=== PATIENT | female | born 1950 | race Caucasian/White ===

== ENCOUNTER 2016-09-24 06:15 | Observation (INO) | payer BC ==
[~2016-09-24] VITALS: Ht 167.6 cm; Wt 81.2 kg
[2016-09-24] VITALS (9 sets, daily range): BP systolic 87–122; BP diastolic 52–78
[~2016-09-24 06:15] MED LIST: CARDIA PO; CEFAZOLIN 1GM IVPB FOR OMNI 50 ML IV PRN; ESTRADIOL; HYDR-2666 PO; HYDR5SUS PO; IBUP-1060 PO; LOSA1TAB18 PO; SPIR50TA2 PO
[2016-09-24] MEDS ORDERED: FENTANYL PF 100 MCG/2 ML VIAL. IV PRN (07:00)
[2016-09-24] MEDS ORDERED: IV RINGERS,LACTATED 1000ML 1,000 ML IV SCH (07:00)
[2016-09-24] MEDS ORDERED: HYDROMORPHONE 2 MG/ML VIAL. IV PRN (07:00)
[2016-09-24] MEDS ORDERED: LIDOCAINE 1% 1 ML SYRINGE. ID PRN (07:00)
[2016-09-24] MEDS ORDERED: ONDANSETRON PF 4 MG/2 ML VIAL. IV PRN ×2 (07:00→11:15)
[2016-09-24] MEDS ORDERED: LIDOCAINE 2% 100 MG/5 ML DISP.SYRIN. ONE (07:15)
[2016-09-24] MEDS ORDERED: PROPOFOL 20 ML IV ONE (07:15)
[2016-09-24] MEDS ORDERED: SUCCINYLCHOLINE 200 MG/10 ML VIAL. ONE (07:15)
[2016-09-24] MEDS ORDERED: FENTANYL PF 100 MCG/2 ML VIAL. ONE (07:15)
[2016-09-24] MEDS ORDERED: ROCURONIUM 50 MG/5 ML VIAL. ONE (07:15)
[2016-09-24] MEDS ORDERED: ESTROGENS, CONJ VAGINAL CREAM 30GM TUBE. ONE (07:15)
[2016-09-24] MEDS ORDERED: LIDOCAINE 1%/EPI 1:100,000 20 ML VIAL. ONE (07:15)
[2016-09-24 07:52] LABS: BASO % 1 % (0-3); EOS % 3 % (0-3); HEMATOCRIT 35.4 % (36.0-47.0); HEMOGLOBIN 11.7 g/dL (12.0-15.5); LYMPH # 1.5 x10^3/uL (1.0-4.8); LYMPH % 28 % (24-48); MEAN CORPUSCULAR HEMOGLOBIN 32 pg (25-35); MEAN CORPUSCULAR HGB CONC 33 g/dL (31-37); MEAN CORPUSCULAR VOLUME 95 fL (79-100); MONO % 11 % (0-9); NEUT % 57 % (31-73); PLATELET COUNT 331 x10^3/uL (140-400); RED BLOOD COUNT 3.72 x10^6/uL (3.50-5.40); WHITE BLOOD COUNT 5.2 x10^3/uL (4.0-11.0)
[2016-09-24] MEDS ORDERED: ACETAMINOPHEN INTRAVENOUS 100 ML IV ONE (07:58)
[2016-09-24] MEDS ORDERED: DESFLURANE 61 TO 120 MINUTES IH ONE (08:22)
[2016-09-24] MEDS ORDERED: DEXAMETHASONE SOD PHOS 20 MG/5 ML VIAL. ONE (08:22)
[2016-09-24] MEDS ORDERED: NEOSTIGMINE METHYLSULFATE 5 MG/5 ML SYRINGE. ONE (08:23)
[2016-09-24] MEDS ORDERED: ONDANSETRON PF 4 MG/2 ML VIAL. ONE (08:23)
[2016-09-24] MEDS ORDERED: GLYCOPYRROLATE 1 MG/5 ML VIAL. ONE (08:23)
[2016-09-24] MEDS ORDERED: METHYLENE BLUE 1% 1 ML VIAL. ONE (08:35)
[2016-09-24] MEDS ORDERED: FUROSEMIDE 20 MG/2 ML VIAL ONE (08:35)
[2016-09-24] MEDS ORDERED: IOHEXOL 300 MG/ML 50 ML VIAL. ONE (09:23)
[2016-09-24] MEDS ORDERED: PHENYLEPHRINE in 0.9% NACL PF 1 MG/10 ML DISP.SYRIN. IV ONE (10:42)
--- NOTE | 2016-09-24 11:10 | PDOC ---
BRIEF OPERATIVE NOTE Pre-Op Diagnosis 1. Complete pelvic prolapse 2. HARPER Post-Op Diagnosis Same Procedure Performed 1. Sacrospinous Ligament Fixation 2. Bladder Sling 3. Anterior Colporrhaphy 4. Retrograde Cystogram by Urology, Dr. Gomez Surgeon Dr. Larson, Primary Dr. Gomez, Urology Anesthesiologist TASHA Anesthesia Type: General Blood Loss 100 ml Specimens Obtained vaginal mucosa Findings complete pelvic prolapse, HARPER Complications none Additional Remarks pt. BRIANA Elena Jr, MD Sep 24, 2016 11:10
[2016-09-24] MEDS ORDERED: PROCHLORPERAZINE 10 MG/2 ML VIAL. IV PRN (11:15)
[2016-09-24] MEDS ORDERED: ZOLPIDEM 5 MG TABLET. PO PRN (11:15)
[2016-09-24] MEDS ORDERED: KETOROLAC TROMETHAMINE 30 MG/ML SYRINGE. IV PRN (11:15)
[2016-09-24] MEDS ORDERED: SIMETHICONE 80 MG TAB.CHEW PO PRN (11:15)
[2016-09-24] MEDS ORDERED: DEXTROSE 50% 25 GM / 50ML DISP.SYRIN. IV PRN (11:15)
[2016-09-24] MEDS ORDERED: DIPHENHYDRAMINE 50 MG/ML VIAL IV PRN (11:15)
[2016-09-24] MEDS ORDERED: CALCIUM CARBONATE 500 MG TAB.CHEW PO PRN (11:15)
[2016-09-24] MEDS ORDERED: DIPHENHYDRAMINE HCL 25 MG CAPSULE PO PRN (11:15)
[2016-09-24] MEDS ORDERED: 0.9 % SODIUM CHLORIDE 10 ML DISP.SYRIN. IV PRN (11:15)
[2016-09-24] MEDS: FENTANYL PF 100 MCG/2 ML VIAL. IV PRN ×2 (11:44→11:58)
[2016-09-24] MEDS: MORPHINE SULFATE 2 MG/ML DISP.SYRIN. IV PRN ×2 (12:00→12:13)
[2016-09-24 13:26] LABS: BASO % 0 % (0-3); EOS % 0 % (0-3); HEMATOCRIT 34.2 % (36.0-47.0); HEMOGLOBIN 11.3 g/dL (12.0-15.5); LYMPH # 0.5 x10^3/uL (1.0-4.8); LYMPH % 6 % (24-48); MEAN CORPUSCULAR HEMOGLOBIN 32 pg (25-35); MEAN CORPUSCULAR HGB CONC 33 g/dL (31-37); MEAN CORPUSCULAR VOLUME 96 fL (79-100); MONO % 1 % (0-9); NEUT % 93 % (31-73); PLATELET COUNT 311 x10^3/uL (140-400); RED BLOOD COUNT 3.57 x10^6/uL (3.50-5.40); RED CELL DISTRIBUTION WIDTH 13.8 % (11.5-14.5); WHITE BLOOD COUNT 8.4 x10^3/uL (4.0-11.0)
--- NOTE | 2016-09-24 14:04 | OP ---
DATE OF SURGERY: PREOPERATIVE DIAGNOSES: 1. Complete tobacco products. 2. Stress urinary incontinence. POSTOPERATIVE DIAGNOSES: 1. Complete tobacco products. 2. Stress urinary incontinence. PROCEDURES PERFORMED: 1. Sacrospinous ligament fixation. 2. Bladder sling. 3. Anterior colporrhaphy. 4. Retrograde cystogram by Urology Dr. Gomez. SURGEON: Briana Cohen M.D. SECOND SURGEON: Dr. Gomez, Urology. ANESTHESIA: GETA. ESTIMATED BLOOD LOSS: 100 mL. COMPLICATIONS: None. FINDINGS: Complete pelvic prolapse, stress urinary incontinence. SUMMARY: A 66-year-old female who was diagnosed with complete pelvic organ prolapse and stress urinary incontinence requiring vaginal colpopexy in the form of sacrospinous ligament fixation, anterior and posterior colporrhaphy as well as a bladder sling for stress urinary incontinence. The patient was counseled on risks, benefits and expectations and voiced a clear understanding to proceed. DESCRIPTION OF PROCEDURE: The patient was taken to surgery suite and placed in dorsal lithotomy position. She was prepped with Betadine solution and draped in sterile fashion. After adequate anesthesia, weighted speculum and curved Madeleine placed vaginally, the posterior vaginal cuff was grasped with two Allis clamps. Lidocaine 1% with epinephrine was injected in the horizontal fashion between the two Allis clamps. Scalpel was utilized in a horizontal fashion making an incision through the vaginal mucosa. The vaginal mucosa was dissected away from the pubopelvic fascia anteriorly and posteriorly. We did encounter enterocele sac. Given the dissection portion of the anterior vaginal mucosa, there was concern about the bladder integrity. Therefore, methylene blue was given by Anesthesia, we waited 15-20 minutes and did not have any methylene blue through the ureteral junctions; therefore, Urology was consulted. The urologist, Dr. Gomez then proceeded retrograde cystogram as well as catheter feeding through the ureters up to the level of the kidney, which indicated that the ureters were intact and functioning well, in which we visualized yellow urine effluxing out through the cannulas, the cannulas were then removed and we proceeded with surgery. The enterocele sac was reduced with Monocryl suture in a 3-layer pursestring fashion. We then placed the ureterosacral ligament fixation sutures using the Capio device in which we utilized two sutures placed in the medial aspect of the right sacrospinous ligament and were tied loosely to the anterior and posterior vaginal wall. The remainder of the vaginal cuff was reapproximated using 2-0 Vicryl suture in a [id number] manner. An Allis clamp was placed 1 cm below the urethral orifice second Allis clamp was placed 3 cm below the first Allis clamp at the anterior vaginal wall. Lidocaine 1% with epinephrine was injected between the two Allis clamps in a linear fashion as well as in a periurethral space. Scalpel was utilized to make a vertical incision between the two Allis clamps. Metzenbaum scissors were utilized to dissect the anterior vaginal mucosa off from the pubovesical fascia as well as to dissect the periurethral space bilaterally. This was also dissected out bluntly all the way to the obturator foramen bilaterally. Incision was made at the level of clitoris toward abductus longus inserted to the pubic rami bilaterally in which the Obtryx trocar was then placed. The patient's right entry point, I guide with my index finger through the obturator foramen and out through the opening of the anterior vaginal wall. Same process took place with the left trocar and the cystoscope was then performed, in which there was no evidence of bladder injury. The ureterovesical junction was visualized and functioning normally. The cystoscope was then removed. The bladder mesh was then adjusted to elucidate using a size 7 Hegar dilator. The excess bladder sling mesh at the level of the skin was excised with suture scissors. The pubovesical fascia was then dissected further away from the vaginal mucosa bilaterally and then reapproximated with 2-0 Vicryl suture in an interrupted fashion. The excess anterior vaginal mucosa and some of the posterior vaginal mucosa was removed with Metzenbaum scissors. The vaginal wall mucosa was then reapproximated using 2-0 Vicryl suture in a [id number] manner. The posterior repair was not needed at this time. Dermabond was utilized to reapproximate the skin entry sites. The Devine catheter was placed which elicited clear yellow urine. A Premarin soaked vaginal packing was then placed. The patient tolerated the procedure well and was taken to recovery room in stable condition. Sponge and needle counts correct x 3. BRIANA COHEN MD DR: DEEPA/prasad JOB#: [id number] / [id number]
[2016-09-24 15:00] LABS: PLT ESTIMATE ADEQUATE (ADEQUATE)
[2016-09-24] MEDS: GABAPENTIN 300 MG CAPSULE. PO SCH ×2 (15:17→22:00)
[2016-09-24] MEDS: OXYCODONE/APAP 5/325 TABLET. PO PRN (17:48)
[2016-09-25] MEDS: OXYCODONE/APAP 5/325 TABLET. PO PRN ×5 (00:06→22:34)
[2016-09-25 03:02] VITALS: BP 103/58
[2016-09-25] MEDS: GABAPENTIN 300 MG CAPSULE. PO SCH ×2 (05:32→14:00)
[2016-09-25 06:07] LABS: BASO % 0 % (0-3); EOS % 0 % (0-3); HEMATOCRIT 29.4 % (36.0-47.0); HEMOGLOBIN 9.9 g/dL (12.0-15.5); LYMPH % 8 % (24-48); MEAN CORPUSCULAR HEMOGLOBIN 32 pg (25-35); MEAN CORPUSCULAR HGB CONC 34 g/dL (31-37); MEAN CORPUSCULAR VOLUME 95 fL (79-100); MONO % 6 % (0-9); NEUT % 87 % (31-73); PLATELET COUNT 289 x10^3/uL (140-400); RED BLOOD COUNT 3.09 x10^6/uL (3.50-5.40); RED CELL DISTRIBUTION WIDTH 13.6 % (11.5-14.5)
[2016-09-25] MEDS: IV RINGERS,LACTATED 1000ML 1,000 ML IV SCH ×4 (06:51→22:33)
[2016-09-25 07:05] VITALS: BP 89/57
[2016-09-25 10:40] VITALS: BP 93/55
[2016-09-25] MEDS ORDERED: IV RINGERS,LACTATED 500ML 500 ML IV ONE (11:45)
[2016-09-25 14:53] VITALS: BP 99/60
--- NOTE | 2016-09-25 17:21 | PDOC ---
SURGICAL PROGRESS NOTE Subjective Pt. feeling well. Pain controlled. Pt. had fluid bolus to help increase urine output. Will keep aguero until tomorrow when bladder challenge is completed. Vital Signs Vital Signs Date Time Temp Pulse Resp B/P Pulse Ox O2 Delivery O2 Flow Rate FiO2 09/25/16 14:53 98.0 76 16 99/60 98 Room Air 98.0 09/24/16 23:51 2.0 I&O Intake and Output 09/25/16 07:00 Intake Total 3448 ml Output Total 925 ml Balance 2523 ml Intake Oral 200 ml IV Total 3248 ml Output Urine Total 825 ml Estimated Blood Loss 100 ml PATIENT HAS A AGUERO: Yes General: Alert, Oriented X3, Cooperative HEENT: Atraumatic Lungs: Clear to auscultation Heart: Regular rate Abdomen: Normal bowel sounds, Soft, No tenderness, No masses Extremities: No edema Psych/Mental Status: Mental status NL Labs Laboratory Tests Test 09/24/16 07:00 09/24/16 13:10 09/25/16 05:30 White Blood Count 5.2x10^3/uL (4.0-11.0) 8.4x10^3/uL (4.0-11.0) 14.0x10^3/uL (4.0-11.0) Red Blood Count 3.72x10^6/uL (3.50-5.40) 3.57x10^6/uL (3.50-5.40) 3.09x10^6/uL (3.50-5.40) Hemoglobin 11.7g/dL (12.0-15.5) 11.3g/dL (12.0-15.5) 9.9g/dL (12.0-15.5) Hematocrit 35.4% (36.0-47.0) 34.2% (36.0-47.0) 29.4% (36.0-47.0) Mean Corpuscular Volume 95fL (79-100) 96fL (79-100) 95fL (79-100) Mean Corpuscular Hemoglobin 32pg (25-35) 32pg (25-35) 32pg (25-35) Mean Corpuscular Hemoglobin Concent 33g/dL (31-37) 33g/dL (31-37) 34g/dL (31-37) Red Cell Distribution Width 14.0% (11.5-14.5) 13.8% (11.5-14.5) 13.6% (11.5-14.5) Platelet Count 331x10^3/uL (140-400) 311x10^3/uL (140-400) 289x10^3/uL (140-400) Neutrophils (%) (Auto) 57% (31-73) 93% (31-73) 87% (31-73) Lymphocytes (%) (Auto) 28% (24-48) 6% (24-48) 8% (24-48) Monocytes (%) (Auto) 11% (0-9) 1% (0-9) 6% (0-9) Eosinophils (%) (Auto) 3% (0-3) 0% (0-3) 0% (0-3) Basophils (%) (Auto) 1% (0-3) 0% (0-3) 0% (0-3) Neutrophils # (Auto) 3.0x10^3uL (1.8-7.7) 7.8x10^3uL (1.8-7.7) 12.2x10^3uL (1.8-7.7) Lymphocytes # (Auto) 1.5x10^3/uL (1.0-4.8) 0.5x10^3/uL (1.0-4.8) 1.0x10^3/uL (1.0-4.8) Monocytes # (Auto) 0.6x10^3/uL (0.0-1.1) 0.1x10^3/uL (0.0-1.1) 0.8x10^3/uL (0.0-1.1) Eosinophils # (Auto) 0.2x10^3/uL (0.0-0.7) 0.0x10^3/uL (0.0-0.7) 0.0x10^3/uL (0.0-0.7) Basophils # (Auto) 0.0x10^3/uL (0.0-0.2) 0.0x10^3/uL (0.0-0.2) 0.0x10^3/uL (0.0-0.2) Segmented Neutrophils % 91% (35-66) Band Neutrophils % 4% (0-9) Lymphocytes % 3% (24-48) Atypical Lymphocytes % (Manual) 2% (0-0) Platelet Estimate Adequate (ADEQUATE) Laboratory Tests Test 09/25/16 05:30 White Blood Count 14.0x10^3/uL (4.0-11.0) Red Blood Count 3.09x10^6/uL (3.50-5.40) Hemoglobin 9.9g/dL (12.0-15.5) Hematocrit 29.4% (36.0-47.0) Mean Corpuscular Volume 95fL (79-100) Mean Corpuscular Hemoglobin 32pg (25-35) Mean Corpuscular Hemoglobin Concent 34g/dL (31-37) Red Cell Distribution Width 13.6% (11.5-14.5) Platelet Count 289x10^3/uL (140-400) Neutrophils (%) (Auto) 87% (31-73) Lymphocytes (%) (Auto) 8% (24-48) Monocytes (%) (Auto) 6% (0-9) Eosinophils (%) (Auto) 0% (0-3) Basophils (%) (Auto) 0% (0-3) Neutrophils # (Auto) 12.2x10^3uL (1.8-7.7) Lymphocytes # (Auto) 1.0x10^3/uL (1.0-4.8) Monocytes # (Auto) 0.8x10^3/uL (0.0-1.1) Eosinophils # (Auto) 0.0x10^3/uL (0.0-0.7) Basophils # (Auto) 0.0x10^3/uL (0.0-0.2) Problem List Problems Medical Problems: (1) HARPER (stress urinary incontinence, female) Status: Acute (2) Vaginal vault prolapse, posthysterectomy Status: Acute Assessment/Plan A: POD#1 s/p SSF, Anterior Repair and BLadder sling Dehydration: urine output improving P: Continue post op care. Continue aguero cath. Anticipate d/c home tomorrow. Problems: BRIANA COHEN Jr, MD Sep 25, 2016 17:21
[2016-09-25 17:30] VITALS: BP 98/56
[2016-09-25 22:35] VITALS: BP 90/55
[2016-09-26] MEDS: OXYCODONE/APAP 5/325 TABLET. PO PRN ×3 (04:21→15:56)
[2016-09-26] MEDS: IV RINGERS,LACTATED 1000ML 1,000 ML IV SCH ×2 (04:22→11:27)
[2016-09-26 05:20] VITALS: BP 100/65
[2016-09-26 11:05] VITALS: BP 115/71
--- NOTE | 2016-09-26 14:42 | PDOC ---
SURGICAL PROGRESS NOTE Subjective Pt. feeling better. Pain controlled. SHe passed bladder challenge. Vital Signs Vital Signs Date Time Temp Pulse Resp B/P Pulse Ox O2 Delivery O2 Flow Rate FiO2 09/26/16 11:24 20 96 Nasal Cannula 2.0 09/26/16 11:05 98.4 80 115/71 98.4 I&O Intake and Output 09/26/16 07:00 Intake Total 3975 ml Output Total 1930 ml Balance 2045 ml Intake Oral 2150 ml IV Total 1000 ml Other 825 ml Output Urine Total 1930 ml PATIENT HAS A DAMON: No General: Alert, Oriented X3, Cooperative HEENT: Atraumatic Lungs: Clear to auscultation Heart: Regular rate Abdomen: Normal bowel sounds, Soft, No tenderness Extremities: No edema Neuro: Normal gait Psych/Mental Status: Mental status NL Labs Laboratory Tests Test 09/25/16 05:30 White Blood Count 14.0x10^3/uL (4.0-11.0) Red Blood Count 3.09x10^6/uL (3.50-5.40) Hemoglobin 9.9g/dL (12.0-15.5) Hematocrit 29.4% (36.0-47.0) Mean Corpuscular Volume 95fL (79-100) Mean Corpuscular Hemoglobin 32pg (25-35) Mean Corpuscular Hemoglobin Concent 34g/dL (31-37) Red Cell Distribution Width 13.6% (11.5-14.5) Platelet Count 289x10^3/uL (140-400) Neutrophils (%) (Auto) 87% (31-73) Lymphocytes (%) (Auto) 8% (24-48) Monocytes (%) (Auto) 6% (0-9) Eosinophils (%) (Auto) 0% (0-3) Basophils (%) (Auto) 0% (0-3) Neutrophils # (Auto) 12.2x10^3uL (1.8-7.7) Lymphocytes # (Auto) 1.0x10^3/uL (1.0-4.8) Monocytes # (Auto) 0.8x10^3/uL (0.0-1.1) Eosinophils # (Auto) 0.0x10^3/uL (0.0-0.7) Basophils # (Auto) 0.0x10^3/uL (0.0-0.2) Problem List Problems Medical Problems: (1) HARPER (stress urinary incontinence, female) Status: Acute (2) Vaginal vault prolapse, posthysterectomy Status: Acute Assessment/Plan A: POD#2 s/p SSF, Anterior Repair and Bladder Sling P: D/c home. Problems: BRIANA COHEN Jr, MD Sep 26, 2016 14:42
--- NOTE | 2016-09-26 14:43 | DISCH ---
DISCHARGE INSTRUCTIONS Condition on Discharge Condition on Discharge: Stable Activity After Discharge Activity Instructions for Disc: Activity as tolerated Lifting Instructions after Dis: No heavy lifting Driving Instructions after Dis: Do not drive today Diet after Discharge Diet after Discharge: Regular Contacting the DRJose after DC Call your doctor for: Concerns you may have Follow-Up Follow up with: Dr. Larson in 2 weeks. BRIANA LARSON Jr, MD Sep 26, 2016 14:43
[2016-09-26] MEDS ORDERED: OXYC-323 PO (14:44)
[2016-09-26] MEDS ORDERED: IBUP-1060 PO (14:44)
[2016-09-26] MEDS ORDERED: DOCU-27 PO (14:44)
[2016-09-26 16:00] VITALS: BP 122/79
== END 2016-09-26 18:26 | disposition home or self-care (01) ==
LOC: SURG 06:15 → 3 NORTH 11:34
PROVIDERS: ADMIT Obstetrics & Gynecology; ATTEND Obstetrics & Gynecology
DX: N81.89 Other female genital prolapse (principal); N39.3 Stress incontinence (female) (male); F17.200 Nicotine dependence, unspecified, uncomplicated
CPT/HCPCS: 36415; 52005; 57282; 57288; 74420; 85007; 85027; 86850; 86900; 86901; 96374; A4215; C1769; G0378; G0379; J0131; J0330; J0690; J0780; J1100; J1885; J2270; J2370; J2405; J2704; J2710; J3010; J3490; J7030; J7120; Q9967; Q9968; C1771

== ENCOUNTER 2016-09-27 03:15 | Inpatient (IN) | payer BC ==
[~2016-09-27] VITALS: Ht 167.6 cm; Wt 91.2 kg
[~2016-09-27 03:15] MED LIST changes: -CEFAZOLIN 1GM IVPB FOR OMNI 50 ML IV PRN; +DOCU-27 PO; +OXYC-323 PO
[2016-09-27 03:40] LABS: BASO % 1 % (0-3); EOS % 1 % (0-3); HEMATOCRIT 32.3 % (36.0-47.0); HEMOGLOBIN 10.7 g/dL (12.0-15.5); LYMPH # 1.2 x10^3/uL (1.0-4.8); LYMPH % 12 % (24-48); MEAN CORPUSCULAR HEMOGLOBIN 32 pg (25-35); MEAN CORPUSCULAR HGB CONC 33 g/dL (31-37); MEAN CORPUSCULAR VOLUME 96 fL (79-100); MONO % 8 % (0-9); NEUT % 79 % (31-73); PLATELET COUNT 308 x10^3/uL (140-400); RED BLOOD COUNT 3.36 x10^6/uL (3.50-5.40); RED CELL DISTRIBUTION WIDTH 13.5 % (11.5-14.5); WHITE BLOOD COUNT 10.1 x10^3/uL (4.0-11.0)
[2016-09-27] MEDS ORDERED: IV NORMAL SALINE 1000ML BAG 1,000 ML IV ONE (03:45)
[2016-09-27] MEDS ORDERED: FAMOTIDINE 20 MG/2 ML VIAL IVP ONE (03:45)
[2016-09-27] MEDS ORDERED: ASPIRIN 81 MG TAB.CHEW PO ONE (03:45)
[2016-09-27] MEDS ORDERED: ONDANSETRON PF 4 MG/2 ML VIAL. IV ONE (03:45)
[2016-09-27 03:51] LABS: CALCIUM 9.2 mg/dL (8.5-10.1); CREATININE 0.8 mg/dL (0.6-1.0); GFR 72.2; POTASSIUM 3.5 mmol/L (3.5-5.1)
[2016-09-27 03:59] LABS: ALBUMIN 3.5 g/dL (3.4-5.0); DIRECT BILIRUBIN 0.1 mg/dL (0.0-0.2); MAGNESIUM 1.5 mg/dL (1.8-2.4); TOTAL BILIRUBIN 0.4 mg/dL (0.2-1.0); TOTAL PROTEIN 6.9 g/dL (6.4-8.2)
[2016-09-27] MEDS ORDERED: CONTRAST GIVEN MC PRN (04:00)
[2016-09-27] MEDS ORDERED: IOHEXOL 300 MG/ML 75 ML VIAL IV ONE (04:00)
[2016-09-27 04:04] LABS: CKMB INDEX 0.9 % (0-4); CKMB MASS 1.1 ng/mL (0.0-3.6)
--- NOTE | 2016-09-27 04:43 | PHYS DOC ---
Past Medical History Past Medical History: Hypertension Past Surgical History: Hysterectomy, Knee Replacement Additional Past Surgical Histo: BILAT BREAST BIOPSY, PROLAPSED BLADDER SX Alcohol Use: None Drug Use: None Adult General Chief Complaint Chief Complaint: CHEST PAIN HPI HPI 66-year-old female with a recent history of bladder surgery presents with left- sided chest pain shortness of breath and dyspnea on exertion. She also states she's had some nausea vomiting and diarrhea. She states this primarily started 4 -5 hours prior to arrival. She denies any high fever chills sweats or body aches. She has not had any hemoptysis. She does state that it occasionally hurts when she takes a deep breath. [] Review of Systems Review of Systems Constitutional: Denies fever or chills [] Eyes: Denies change in visual acuity, redness, or eye pain [] HENT: Denies nasal congestion or sore throat [] Respiratory: Per history of present illness [] Cardiovascular: No additional information not addressed in HPI [] GI: Denies abdominal pain, nausea, vomiting, bloody stools or diarrhea [] : Denies dysuria or hematuria [] Musculoskeletal: Denies back pain or joint pain [] Integument: Denies rash or skin lesions [] Neurologic: Denies headache, focal weakness or sensory changes [] Endocrine: Denies polyuria or polydipsia [] Current Medications Current Medications Current Medications Medications (Trade) Dose Ordered Sig/Laxmi Start Time Stop Time Status Last Admin Dose Admin Acetaminophen (Tylenol) 650 mg PRN Q4HRS PRN 09/27/16 05:45 09/28/16 05:44 Aspirin 324 mg 324 mg 1X ONCE 09/27/16 03:45 09/27/16 03:46 DC 09/27/16 03:57 324 MG Famotidine (Pepcid) 20 mg 1X ONCE 09/27/16 03:45 09/27/16 03:46 DC 09/27/16 03:57 20 MG Furosemide (Lasix) 40 mg 1X ONCE 09/27/16 05:15 09/27/16 05:16 DC 09/27/16 05:46 40 MG Info (Do NOT chart on this entry -- for MONITORING) 1 each PRN DAILY PRN 09/27/16 04:00 09/29/16 03:59 Iohexol (Omnipaque 300 Mg/ml) 75 ml 1X ONCE 09/27/16 04:00 09/27/16 04:01 DC Ondansetron HCl (Zofran) 4 mg PRN Q8HRS PRN 09/27/16 05:45 09/28/16 05:44 Sodium Chloride (Iv Sodium Chloride 0.9% 1000ml Bag) 1,000 ml @ 1,000 mls/hr 1X ONCE 09/27/16 03:45 09/27/16 04:44 DC 09/27/16 03:56 1,000 MLS/HR Allergies Allergies Allergies Coded Allergies Type Severity Reaction Last Updated Verified No Known Drug Allergies 09/22/16 No Physical Exam Physical Exam Constitutional: Well developed, well nourished, no acute distress, non-toxic appearance. [] HENT: Normocephalic, atraumatic, bilateral external ears normal, oropharynx moist, no oral exudates, nose normal. [] Eyes: PERRLA, EOMI, conjunctiva normal, no discharge. [] Neck: Normal range of motion, no tenderness, supple, no stridor. [] Cardiovascular:Heart rate regular rhythm, no murmur [] Lungs & Thorax: Bilateral breath sounds clear to auscultation [] Abdomen: Bowel sounds normal, soft, no tenderness, no masses, no pulsatile masses. [] Skin: Warm, dry, no erythema, no rash. [] Back: No tenderness, no CVA tenderness. [] Extremities: No tenderness, no cyanosis, no clubbing, ROM intact, no edema. [] Neurologic: Alert and oriented X 3, normal motor function, normal sensory function, no focal deficits noted. [] Psychologic: Affect normal, judgement normal, mood normal. [] Current Patient Data Vital Signs Vital Signs Date Time Temp Pulse Resp B/P Pulse Ox O2 Delivery O2 Flow Rate FiO2 09/27/16 03:21 97.8 82 22 159/81 93 Room Air 97.8 Lab Values Laboratory Tests Test 09/27/16 03:30 White Blood Count 10.1x10^3/uL (4.0-11.0) Red Blood Count 3.36x10^6/uL (3.50-5.40) L Hemoglobin 10.7g/dL (12.0-15.5) L Hematocrit 32.3% (36.0-47.0) L Mean Corpuscular Volume 96fL (79-100) Mean Corpuscular Hemoglobin 32pg (25-35) Mean Corpuscular Hemoglobin Concent 33g/dL (31-37) Red Cell Distribution Width 13.5% (11.5-14.5) Platelet Count 308x10^3/uL (140-400) Neutrophils (%) (Auto) 79% (31-73) H Lymphocytes (%) (Auto) 12% (24-48) L Monocytes (%) (Auto) 8% (0-9) Eosinophils (%) (Auto) 1% (0-3) Basophils (%) (Auto) 1% (0-3) Neutrophils # (Auto) 8.0x10^3uL (1.8-7.7) H Lymphocytes # (Auto) 1.2x10^3/uL (1.0-4.8) Monocytes # (Auto) 0.8x10^3/uL (0.0-1.1) Eosinophils # (Auto) 0.1x10^3/uL (0.0-0.7) Basophils # (Auto) 0.0x10^3/uL (0.0-0.2) Prothrombin Time 13.0SEC (11.7-14.0) Prothrombin Time INR 1.0 (0.8-1.1) Sodium Level 141mmol/L (136-145) Potassium Level 3.5mmol/L (3.5-5.1) Chloride Level 104mmol/L (98-107) Carbon Dioxide Level 30mmol/L (21-32) Anion Gap 7 (6-14) Blood Urea Nitrogen 12mg/dL (7-20) Creatinine 0.8mg/dL (0.6-1.0) Estimated GFR (Cockcroft-Gault) 72.2 Glucose Level 108mg/dL (70-99) H Calcium Level 9.2mg/dL (8.5-10.1) Magnesium Level 1.5mg/dL (1.8-2.4) L Total Bilirubin 0.4mg/dL (0.2-1.0) Direct Bilirubin 0.1mg/dL (0.0-0.2) Aspartate Amino Transferase (AST) 38U/L (15-37) H Alanine Aminotransferase (ALT) 32U/L (14-59) Alkaline Phosphatase 75U/L (46-116) Creatine Kinase 125U/L (26-192) Creatine Kinase MB (Mass) 1.1ng/mL (0.0-3.6) Creatine Kinase MB Relative Index 0.9% (0-4) Troponin I Quantitative < 0.017ng/mL (0.000-0.055) VI-Ypa-J-Type Natriuretic Peptide 892pg/mL (0-124) H Total Protein 6.9g/dL (6.4-8.2) Albumin 3.5g/dL (3.4-5.0) Laboratory Tests 09/27/16 03:30 Laboratory Tests 09/27/16 03:30 EKG EKG [EKG: Normal sinus rhythm rate of [address]-T changes] Radiology/Procedures Radiology/Procedures [Chest x-ray: Vascular congestion consistent with congestive heart failure] Course & Med Decision Making Course & Med Decision Making Pertinent Labs and Imaging studies reviewed. (See chart for details) [ED course: Evaluation reveals 66-year-old female who is uncomfortable secondary to some fullness in her chest. She climbed she had chest pain. She had some pleuritic component to her pain. She was given IV Lasix during her stay in the department and she did begin to diurese and after doing so felt much better. I spoke with Dr. Gilberto irizarry who agreed to accept the patient for admission.] Dragon Disclaimer Dragon Disclaimer This electronic medical record was generated, in whole or in part, using a voice recognition dictation system. Departure Departure Impression: Primary Impression: Shortness of breath Additional Impression: CHF (congestive heart failure) Disposition: 09 ADMITTED INPATIENT Admitting Physician: Cristian Balbuena Referrals: ANAHI WOODY MD (PCP) Problem Qualifiers Additional Impression: CHF (congestive heart failure) Congestive heart failure type: unspecified congestive heart failure type Congestive heart failure chronicity: unspecified congestive heart failure chronicity Qualified Code: I50.9 - Heart failure, unspecified DEVORA VALDEZ DO Sep 27, 2016 04:43
[2016-09-27] MEDS ORDERED: FUROSEMIDE 40 MG/4 ML VIAL IVP ONE (05:15)
--- NOTE | 2016-09-27 05:27 | RAD ---
INDICATION: Chest pain. COMPARISON: None TECHNIQUE: Axial CT images obtained through the chest. Intravenous contrast was utilized. 3D images processed per protocol. One or more of the following individualized dose reduction techniques were utilized for this examination: 1. Automated exposure control; 2. Adjustment of the mA and/or kV according to patient size; 3. Use of iterative reconstruction technique. FINDINGS: Mild interstitial opacities. More focal opacities are seen at the lung bases. Small right greater than left pleural effusion. No pneumothorax. No thoracic aortic aneurysm or dissection. Suspect small hiatal hernia. Degenerative changes of spine. No central pulmonary embolus IMPRESSION: No central pulmonary embolus. Interstitial opacities bilaterally with small pleural effusions. Could be from edema. Patchy opacities at lung bases. Could be from atelectasis or infiltrate. Follow-up could be obtained to ensure resolution. Electronically signed by: Andrew De La Rosa (Sep 27, 2016 05:25:30)
[2016-09-27] MEDS ORDERED: ONDANSETRON PF 4 MG/2 ML VIAL. IV PRN (05:45)
[2016-09-27] MEDS ORDERED: ACETAMINOPHEN 325 MG TABLET. PO PRN (05:45)
--- NOTE | 2016-09-27 06:42 | ACF ---
Admission Forms Criteria HEART FAILURE: COMMON COMPLICATIONS Clinical Indications for Inpatient Care (Place 'X' for any and all applicable criteria): Ongoing inpatient care may be indicated for heart failure with ANY ONE of the following (1)(2)(3)(4)(5): [ ]I. Ongoing need for care for primary condition requiring frequent therapy adjustments because of changes in cardiac function (eg, drug dosage changes for drugs that are renally metabolized) [ ]II. New-onset heart failure [ ]III. Heart failure with decreased urine output not responsive to attempts to optimize volume status [ ]IV. Acute cardiac ischemia causing or associated with failure [X]V. Complications of heart failure, including ANY ONE of the following: [ ]a) Pericardial effusion [ ]b) Symptomatic pleural effusion [ ]c) O2 saturation <90% or PO2 < 60 mm Hg (8.0 kPa) on room air or require baseline supplemental O2 [ ]d) Tachypnea [X]e) Dyspnea [ ]f) Syncope [ ]g) Change in mental status [ ]h) Acute renal insufficiency that is severe (reduction of more than 50% in estimated glomerular filtration rate from baseline) or progressive reduction of more than 25% in estimated glomerular filtration rate from baseline, with creatinine continuing to rise) [ ]i) Hemodynamic instability [ ]j) Anasarca [ ]k) Clinically significant metabolic abnormalities due to heart failure (eg, new-onset metabolic acidosis) Extended stay beyond goal length of stay for primary condition may be needed until ALL of the following are present(1)(3): [ ]a) Stable and effective diuretic regimen established (or patient on stable dialysis regimen if in chronic renal failure) [ ]b) Breathing comfortably at rest [ ]c) Saturation of arterial oxygen greater than 90% or at acceptable baseline [ ]d) Pulmonary edema absent or improved [ ]e) Hemodynamic stability [ ]f) Volume status acceptable on oral medication [ ]g) Peripheral or sacral edema absent or improved [ ]h) Renal function stable and manageable at a lower level of care [ ]i) Complications (eg, pleural effusion) resolved or manageable at a lower level of care [ ]j) Patient or caregiver has received written discharge instructions or educational material addressing activity level, diet, discharge medications, follow-up appointment, weight monitoring, and what to do if symptoms worsen The original [email or web address] content created by [email or web address] has been revised. The portions of the content which have been revised are identified through the use of italic text or in bold, and [facility] has neither reviewed nor approved the modified material.All other unmodified content is copyright [facility]. Please see references footnoted in the original [facility] edition 2016 Admission Criteria Met?: Yes STEVEN LAYTON Sep 27, 2016 06:42
[2016-09-27 07:00] VITALS: BP 151/84
--- NOTE | 2016-09-27 07:57 | RAD ---
EXAM: Chest, single view. HISTORY: Chest pain. COMPARISON: 11/17/2012. FINDINGS: A frontal view of the chest is obtained. There is bilateral lower lobe predominant diffuse interstitial infiltrate. There is no pneumothorax. There are suspected trace to small pleural effusions. The heart is normal in size. IMPRESSION: Lower lobe predominant diffuse interstitial infiltrate with possible trace to small pleural effusions.
[2016-09-27] MEDS ORDERED: IBUPROFEN 800 MG TABLET. PO PRN ×2 (08:00→14:15)
[2016-09-27] MEDS ORDERED: HYDROCODONE/CHLORPHEN POLIS 5 ML SUS.ER.12H. PO PRN (08:15)
[2016-09-27] MEDS ORDERED: NON FORMULARY ITEM (Losartan/Hydrochlorothiazide (Losartan-Hctz 100-12.5 Mg Tab) 1 EACH) PO SCH (09:00)
[2016-09-27] MEDS: SPIRONOLACTONE 25 MG TABLET PO SCH (09:03)
[2016-09-27] MEDS: DOCUSATE SODIUM 100 MG CAPSULE PO SCH ×2 (09:03→20:28)
[2016-09-27] MEDS: HYDROCHLOROTHIAZIDE 12.5 MG CAPSULE. PO SCH (09:03)
[2016-09-27] MEDS: LOSARTAN POTASSIUM 50 MG TABLET. PO SCH (09:04)
[2016-09-27] MEDS: DILTIAZEM HCL 180 MG CAP.ER.24H PO SCH (09:08)
[2016-09-27] MEDS ORDERED: MAGNESIUM SULFATE 2GM 50 ML IV ONE (09:30)
--- NOTE | 2016-09-27 09:46 | PDOC2 ---
CONSULT Date of Consult Date of Consult DATE: 09/27/16 TIME: 09:46 Reason for Consult Reason for Consult: Congestive heart failure Referring Physician Referring Physician: Dr. Balbuena Identification/Chief Complaint Chief Complaint Shortness of breath Source Source: Chart review, Patient History of Present Illness Reason for Visit: 66-year-old female who recently underwent surgical repair for prolapsed bladder 09/25/15 presented with shortness of breath associated with retrosternal chest pressure, nausea, vomiting and diarrhea starting 4-5 hours prior to presentation. She denied any fever, chills, palpitations or syncope. Past Medical History Past Medical History Hypertension Past Surgical History Past Surgical History Hysterectomy Knee replacement surgery Prolapsed bladder surgery Breast biopsy Family History Family History Negative for premature coronary artery disease Social History Social History Patient denied any smoking alcohol or drug use Current Problem List Problem List Problems Medical Problems: (1) CHF (congestive heart failure) Status: Acute (2) Shortness of breath Status: Acute Current Medications Current Medications Current Medications Aspirin 324 mg 324 mg 1X ONCE PO Last administered on 09/27/16 03:57; Start 09/27/16 at 03:45; Stop 09/27/16 at 03:46; Status DC Sodium Chloride (Iv Sodium Chloride 0.9% 1000ml Bag) 1,000 ml @ 1,000 mls/hr 1X ONCE IV Last administered on 09/27/16 03:56; Start 09/27/16 at 03:45; Stop 09/27/16 at 04:44; Status DC Ondansetron HCl (Zofran) 4 mg 1X ONCE IV Last administered on 09/27/16 03:56 ; Start 09/27/16 at 03:45; Stop 09/27/16 at 03:46; Status DC Famotidine (Pepcid) 20 mg 1X ONCE IVP Last administered on 09/27/16 03:57; Start 09/27/16 at 03:45; Stop 09/27/16 at 03:46; Status DC Iohexol (Omnipaque 300 Mg/ml) 75 ml 1X ONCE IV ; Start 09/27/16 at 04:00; Stop 09/27/16 at 04:01; Status DC Info (Do NOT chart on this entry -- for MONITORING) 1 each PRN DAILY PRN MC SEE COMMENTS; Start 09/27/16 at 04:00; Stop 09/29/16 at 03:59 Furosemide (Lasix) 40 mg 1X ONCE IVP Last administered on 09/27/16 05:46; Start 09/27/16 at 05:15; Stop 09/27/16 at 05:16; Status DC Ondansetron HCl (Zofran) 4 mg PRN Q8HRS PRN IV NAUSEA/VOMITING; Start 09/27/16 at 05:45; Stop 09/28/16 at 05:44 Acetaminophen (Tylenol) 650 mg PRN Q4HRS PRN PO FEVER; Start 09/27/16 at 05:45 ; Stop 09/28/16 at 05:44 Docusate Sodium (Colace) 100 mg BID PO Last administered on 09/27/16 09:03; Start 09/27/16 at 09:00 Oxycodone/ Acetaminophen (Percocet 5/325) 1 tab PRN Q4HRS PRN PO SEVERE PAIN; Start 09/27/16 at 08:00 Chlorphenir/ Hydrocodone Polistirex (Tussionex) 5 ml PRN Q12HR PRN PO COUGH; Start 09/27/16 at 08:15 Non-Formulary Medication 1 each DAILY PO ; Start 09/27/16 at 09:00; Status UNV Spironolactone (Aldactone) 50 mg DAILY PO Last administered on 09/27/16 09:03 ; Start 09/27/16 at 09:00 Diltiazem HCl (Cardizem 24hr Cd) 180 mg DAILY PO Last administered on 09:08; Start 09/27/16 at 09:00 Ibuprofen (Motrin) 800 mg PRN Q6HRS PRN PO INFLAMMATION; Start 09/27/16 at 08: 00 Losartan Potassium (Cozaar) 100 mg DAILY PO Last administered on 09/27/16 09: 04; Start 09/27/16 at 09:00 Hydrochlorothiazide 12.5 mg 12.5 mg DAILY PO Last administered on 09/27/16 09: 03; Start 09/27/16 at 09:00 Magnesium Sulfate/ Dextrose (Magnesium Sulfate PREMIX 2GM) 50 ml @ 25 mls/hr 1X ONCE IV ; Start 09/27/16 at 09:30; Stop 09/27/16 at 11:29 Active Scripts Active Percocet 5-325 Mg Tablet (Oxycodone/Acetaminophen) 1 Each Tablet 1-2 Tab PO Q4- 6HRS Colace (Docusate Sodium) 100 Mg Capsule 1 Cap PO BID Ibuprofen 800 Mg Tablet 800 Mg PO PRN Q6HRS PRN Reported Losartan-Hctz 100-12.5 Mg Tab (Losartan/Hydrochlorothiazide) 1 Each Tablet 1 Each PO DAILY [estradiol injection] Q4WK Spironolactone 50 Mg Tablet 1 Tab PO DAILY [cardia] 180 Mg PO DAILY Ibuprofen 800 Mg Tablet 800 Mg PO PRN Q6HRS PRN Hydrocodone-Apap 5-325 (Hydrocodone Bit/Acetaminophen) 1 Each Tablet 1 Tab PO PRN Q6HRS PRN Hydrocodone-Chlorpheniram Susp (Hydrocodone/Chlorphen Polis) 5 Ml Miriam.er.12h 5 Ml PO PRN Q12HR PRN Allergies Allergies: Coded Allergies: No Known Drug Allergies (Unverified , 09/22/16) ROS PSYCHOLOGICAL ROS: No: Hallucinations Eyes: No Loss of vision HEENT: No: Epistaxis Respiratory: YES: Shortness of breath, No: Cough, Hemoptysis Cardiovascular: yes Chest Pain Gastrointestinal: Yes Diarrhea, Yes Nausea, Yes Vomiting Genitourinary: No Hematuria Neurological: No Seizures Skin: No Rash Physical Exam General: Alert HEENT: Atraumatic, PERRLA Lungs: Clear to auscultation Heart: Regular rate Abdomen: Soft Extremities: No edema Psych/Mental Status: Mood NL Vitals VITALS Vital Signs Date Time Temp Pulse Resp B/P Pulse Ox O2 Delivery O2 Flow Rate FiO2 09/27/16 09:08 73 151/84 09/27/16 07:00 97.9 21 96 Room Air 97.9 Labs Labs Laboratory Tests Test 09/27/16 03:30 White Blood Count 10.1x10^3/uL (4.0-11.0) Red Blood Count 3.36x10^6/uL (3.50-5.40) Hemoglobin 10.7g/dL (12.0-15.5) Hematocrit 32.3% (36.0-47.0) Mean Corpuscular Volume 96fL (79-100) Mean Corpuscular Hemoglobin 32pg (25-35) Mean Corpuscular Hemoglobin Concent 33g/dL (31-37) Red Cell Distribution Width 13.5% (11.5-14.5) Platelet Count 308x10^3/uL (140-400) Neutrophils (%) (Auto) 79% (31-73) Lymphocytes (%) (Auto) 12% (24-48) Monocytes (%) (Auto) 8% (0-9) Eosinophils (%) (Auto) 1% (0-3) Basophils (%) (Auto) 1% (0-3) Neutrophils # (Auto) 8.0x10^3uL (1.8-7.7) Lymphocytes # (Auto) 1.2x10^3/uL (1.0-4.8) Monocytes # (Auto) 0.8x10^3/uL (0.0-1.1) Eosinophils # (Auto) 0.1x10^3/uL (0.0-0.7) Basophils # (Auto) 0.0x10^3/uL (0.0-0.2) Prothrombin Time 13.0SEC (11.7-14.0) Prothromb Time International Ratio 1.0 (0.8-1.1) Sodium Level 141mmol/L (136-145) Potassium Level 3.5mmol/L (3.5-5.1) Chloride Level 104mmol/L (98-107) Carbon Dioxide Level 30mmol/L (21-32) Anion Gap 7 (6-14) Blood Urea Nitrogen 12mg/dL (7-20) Creatinine 0.8mg/dL (0.6-1.0) Estimated GFR (Cockcroft-Gault) 72.2 Glucose Level 108mg/dL (70-99) Calcium Level 9.2mg/dL (8.5-10.1) Magnesium Level 1.5mg/dL (1.8-2.4) Total Bilirubin 0.4mg/dL (0.2-1.0) Direct Bilirubin 0.1mg/dL (0.0-0.2) Aspartate Amino Transf (AST/SGOT) 38U/L (15-37) Alanine Aminotransferase (ALT/SGPT) 32U/L (14-59) Alkaline Phosphatase 75U/L (46-116) Creatine Kinase 125U/L (26-192) Creatine Kinase MB (Mass) 1.1ng/mL (0.0-3.6) Creatine Kinase MB Relative Index 0.9% (0-4) Troponin I Quantitative < 0.017ng/mL (0.000-0.055) HZ-Lnf-O-Type Natriuretic Peptide 892pg/mL (0-124) Total Protein 6.9g/dL (6.4-8.2) Albumin 3.5g/dL (3.4-5.0) Laboratory Tests Test 09/27/16 03:30 White Blood Count 10.1x10^3/uL (4.0-11.0) Red Blood Count 3.36x10^6/uL (3.50-5.40) Hemoglobin 10.7g/dL (12.0-15.5) Hematocrit 32.3% (36.0-47.0) Mean Corpuscular Volume 96fL (79-100) Mean Corpuscular Hemoglobin 32pg (25-35) Mean Corpuscular Hemoglobin Concent 33g/dL (31-37) Red Cell Distribution Width 13.5% (11.5-14.5) Platelet Count 308x10^3/uL (140-400) Neutrophils (%) (Auto) 79% (31-73) Lymphocytes (%) (Auto) 12% (24-48) Monocytes (%) (Auto) 8% (0-9) Eosinophils (%) (Auto) 1% (0-3) Basophils (%) (Auto) 1% (0-3) Neutrophils # (Auto) 8.0x10^3uL (1.8-7.7) Lymphocytes # (Auto) 1.2x10^3/uL (1.0-4.8) Monocytes # (Auto) 0.8x10^3/uL (0.0-1.1) Eosinophils # (Auto) 0.1x10^3/uL (0.0-0.7) Basophils # (Auto) 0.0x10^3/uL (0.0-0.2) Prothrombin Time 13.0SEC (11.7-14.0) Prothromb Time International Ratio 1.0 (0.8-1.1) Sodium Level 141mmol/L (136-145) Potassium Level 3.5mmol/L (3.5-5.1) Chloride Level 104mmol/L (98-107) Carbon Dioxide Level 30mmol/L (21-32) Anion Gap 7 (6-14) Blood Urea Nitrogen 12mg/dL (7-20) Creatinine 0.8mg/dL (0.6-1.0) Estimated GFR (Cockcroft-Gault) 72.2 Glucose Level 108mg/dL (70-99) Calcium Level 9.2mg/dL (8.5-10.1) Magnesium Level 1.5mg/dL (1.8-2.4) Total Bilirubin 0.4mg/dL (0.2-1.0) Direct Bilirubin 0.1mg/dL (0.0-0.2) Aspartate Amino Transf (AST/SGOT) 38U/L (15-37) Alanine Aminotransferase (ALT/SGPT) 32U/L (14-59) Alkaline Phosphatase 75U/L (46-116) Creatine Kinase 125U/L (26-192) Creatine Kinase MB (Mass) 1.1ng/mL (0.0-3.6) Creatine Kinase MB Relative Index 0.9% (0-4) Troponin I Quantitative < 0.017ng/mL (0.000-0.055) AQ-Ktb-Y-Type Natriuretic Peptide 892pg/mL (0-124) Total Protein 6.9g/dL (6.4-8.2) Albumin 3.5g/dL (3.4-5.0) Assessment/Plan Assessment/Plan 1. Congestive heart failure most probably acute on chronic diastolic. Patient diuresed well with Lasix and is presently well compensated clinically. CT scan of the chest did not show acute pulmonary embolism. Check 2-D echo to assess LV systolic function. Ischemic workup in the form of stress test could be considered as an outpatient. 2. Hypertension: Continue current medical regimen Thank you for your consultation JERONIMO LANE MD Sep 27, 2016 09:46
[2016-09-27 11:01] VITALS: BP 133/72
--- NOTE | 2016-09-27 11:43 | EKG ---
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
[2016-09-27] MEDS: OXYCODONE/APAP 5/325 TABLET. PO PRN ×2 (13:17→20:28)
[2016-09-27] MEDS ORDERED: HYDROCODONE/APAP 5/325MG TABLET. PO PRN (14:15)
--- NOTE | 2016-09-27 14:54 | PDOC1 ---
History and Physical Date of Admission Date of Admission DATE: 09/27/16 TIME: 14:47 Identification/Chief Complaint Chief Complaint chest pain, SOA? Source Source: Caregiver, Chart review, Patient History of Present Illness History of Present Illness 66 y.o AA female who ferels close to back to [facility] now came thru ER this am either bec of CP or SOA and was found to have CHF on CXR with elevated BNP 800s. Got lasix diuresis and feels better. CLaims on lasix 20 at [facility] which she takes prn but that is not on file. She has voided alot. She actually just had bladder sx by dr. Larson 09/23 and still has been needing to strain to void. She had prolapsed bladder from 5 NSDs and hevay work load in [facility] for yrs CArds has done echo but results been pending FAmily at bedside HEmodynamically stable Past Medical History Cardiovascular: CHF, HTN, Other (?CHF) Pulmonary: No pertinent hx GI: No pertinent hx Heme/Onc: No pertinent hx Hepatobiliary: No pertinent hx Psych: No pertinent hx Infectious disease: No pertinent hx Renal/: Other (bladder prolapse) Past Surgical History Past Surgical History: Other (bladder prolapse repair) Family History Family History: No Significant Social History Smoke: No ALCOHOL: none Drugs: None Current Problem List Problem List Problems Medical Problems: (1) Chest pain Status: Acute (2) CHF (congestive heart failure) Status: Acute (3) Shortness of breath Status: Acute Problems: Current Medications Current Medications Current Medications Aspirin 324 mg 324 mg 1X ONCE PO Last administered on 09/27/16 03:57; Start 09/27/16 at 03:45; Stop 09/27/16 at 03:46; Status DC Sodium Chloride (Iv Sodium Chloride 0.9% 1000ml Bag) 1,000 ml @ 1,000 mls/hr 1X ONCE IV Last administered on 09/27/16 03:56; Start 09/27/16 at 03:45; Stop 09/27/16 at 04:44; Status DC Ondansetron HCl (Zofran) 4 mg 1X ONCE IV Last administered on 09/27/16 03:56 ; Start 09/27/16 at 03:45; Stop 09/27/16 at 03:46; Status DC Famotidine (Pepcid) 20 mg 1X ONCE IVP Last administered on 09/27/16 03:57; Start 09/27/16 at 03:45; Stop 09/27/16 at 03:46; Status DC Iohexol (Omnipaque 300 Mg/ml) 75 ml 1X ONCE IV ; Start 09/27/16 at 04:00; Stop 09/27/16 at 04:01; Status DC Info (Do NOT chart on this entry -- for MONITORING) 1 each PRN DAILY PRN MC SEE COMMENTS; Start 09/27/16 at 04:00; Stop 09/29/16 at 03:59 Furosemide (Lasix) 40 mg 1X ONCE IVP Last administered on 09/27/16 05:46; Start 09/27/16 at 05:15; Stop 09/27/16 at 05:16; Status DC Ondansetron HCl (Zofran) 4 mg PRN Q8HRS PRN IV NAUSEA/VOMITING Last administered on 09/27/16 10:13; Start 09/27/16 at 05:45; Stop 09/28/16 at 05:44 Acetaminophen (Tylenol) 650 mg PRN Q4HRS PRN PO FEVER; Start 09/27/16 at 05:45 ; Stop 09/28/16 at 05:44 Docusate Sodium (Colace) 100 mg BID PO Last administered on 09/27/16 09:03; Start 09/27/16 at 09:00 Oxycodone/ Acetaminophen (Percocet 5/325) 1 tab PRN Q4HRS PRN PO SEVERE PAIN Last administered on 09/27/16 13:17; Start 09/27/16 at 08:00 Chlorphenir/ Hydrocodone Polistirex (Tussionex) 5 ml PRN Q12HR PRN PO COUGH; Start 09/27/16 at 08:15 Non-Formulary Medication 1 each DAILY PO ; Start 09/27/16 at 09:00; Status UNV Spironolactone (Aldactone) 50 mg DAILY PO Last administered on 09/27/16 09:03 ; Start 09/27/16 at 09:00 Diltiazem HCl (Cardizem 24hr Cd) 180 mg DAILY PO Last administered on 09:08; Start 09/27/16 at 09:00 Ibuprofen (Motrin) 800 mg PRN Q6HRS PRN PO INFLAMMATION; Start 09/27/16 at 08: 00 Losartan Potassium (Cozaar) 100 mg DAILY PO Last administered on 09/27/16 09: 04; Start 09/27/16 at 09:00 Hydrochlorothiazide 12.5 mg 12.5 mg DAILY PO Last administered on 09/27/16 09: 03; Start 09/27/16 at 09:00 Magnesium Sulfate/ Dextrose (Magnesium Sulfate PREMIX 2GM) 50 ml @ 25 mls/hr 1X ONCE IV Last administered on 09/27/16 10:11; Start 09/27/16 at 09:30; Stop 09/27/16 at 11:29; Status DC Acetaminophen/ Hydrocodone Bitart (Lortab 5/325) 1 tab PRN Q6HRS PRN PO PAIN; Start 09/27/16 at 14:15 Ibuprofen (Motrin) 800 mg PRN Q6HRS PRN PO INFLAMMATION; Start 09/27/16 at 14: 15; Stop 09/27/16 at 14:15; Status DC Active Scripts Active Percocet 5-325 Mg Tablet (Oxycodone/Acetaminophen) 1 Each Tablet 1-2 Tab PO Q4- 6HRS Colace (Docusate Sodium) 100 Mg Capsule 1 Cap PO BID Ibuprofen 800 Mg Tablet 800 Mg PO PRN Q6HRS PRN Reported Losartan-Hctz 100-12.5 Mg Tab (Losartan/Hydrochlorothiazide) 1 Each Tablet 1 Each PO DAILY [estradiol injection] Q4WK Spironolactone 50 Mg Tablet 1 Tab PO DAILY [cardia] 180 Mg PO DAILY Ibuprofen 800 Mg Tablet 800 Mg PO PRN Q6HRS PRN Hydrocodone-Apap 5-325 (Hydrocodone Bit/Acetaminophen) 1 Each Tablet 1 Tab PO PRN Q6HRS PRN Hydrocodone-Chlorpheniram Susp (Hydrocodone/Chlorphen Polis) 5 Ml Miriam.er.12h 5 Ml PO PRN Q12HR PRN Allergies Allergies: Coded Allergies: No Known Drug Allergies (Unverified , 09/22/16) ROS Review of System bladder straining, urgency since the lasix PSYCHOLOGICAL ROS: No: Anxiety, Behavioral Disorder, Concentration difficultie , Decreased libido, Depression, Disorientation, Hallucinations, Hostility, Irritablity, Memory difficulties, Mood Swings, Obsessive thoughts, Other, Physical abuse, Sexual abuse, Sleep disturbances, Suicidal ideation Eyes: No Blurry vision, No Decreased vision, No Double vision, No Dry eyes, No Excessive tearing, No Eye Pain, No Itchy Eyes, No Loss of vision, No Other, No Photophobia, No Scotomata, No Uses contacts, No Uses glasses HEENT: No: Epistaxis, Heacaches, Hearing change, Nasal congestion, Nasal discharge, Oral lesions, Other, Sinus pain, Sneezing, Snoring, Sore Throat, Tinnitus, Vertigo, Visual Changes, Vocal changes ALLERGY AND IMMUNOLOGY: No: Hives, Insect Bite Sensitivity, Itchy/Watery Eyes, Nasal Congestion, Other, Post Nasal Drip, Seasonal Allergies Hematological and Lymphatic: No: Bleeding Problems, Blood Clots, Blood Transfusions, Brusing, Night Sweats, Other, Pallor, Swollen Lymph Nodes ENDOCRINE: No: Breast Changes, Galactorrhea, Hair Pattern Changes, Hot Flashes , Malaise/lethargy, Mood Swings, Other, Palpitations, Polydipsia/polyuria, Skin Changes, Temperature Intolerance, Unexpected Weight Changes Breast: No New/Changing Breast Lumps, No Nipple changes, No Nipple discharge, No Other Respiratory: No: Cough, Hemoptysis, Orthopnea, Other, Pleuritic Pain, SOB with excertion, Shortness of breath, Sputum Changes, Stridor, Tachypnea, Wheezing Cardiovascular: No Chest Pain, No Edema, No Lt Headedness, No Orthopnea, No Other, No Palpitations, No Paroxysmal Noc. Dyspnea Gastrointestinal: No Abdominal Pain, No Constipation, No Diarrhea, No Hematochezia, No Melena, No Nausea, No Other, No Vomiting Genitourinary: YES Frequency, YES Retention, YES Urgency Musculoskeletal: No Gait Disturbance, No Joint Pain, No Joint Stiffness, No Joint Swelling, No Muscle Pain, No Muscular Weakness, No Other, No Pain In:, No Swelling In: Neurological: No Behavorial Changes, No Bowel/Bladder ControlChng, No Confusion , No Dizziness, No Gait Disturbance, No Headaches, No Impaired Coord/balance, No Memory Loss, No Numbness/Tingling, No Other, No Seizures, No Speech Problems , No Tremors, No Visual Changes, No Weakness Skin: No Acne, No Dry Skin, No Eczema, No Hair Changes, No Lumps, No Mole Changes, No Mottling, No Nail Changes, No Other, No Pruritus, No Rash, No Skin Lesion Changes Physical Exam General: Alert, Oriented X3, Cooperative, No acute distress HEENT: Atraumatic, PERRLA, EOMI, Mucous membr. moist/pink Lungs: Clear to auscultation, Normal air movement Heart: S1S2, RRR, no thrills, no rubs, no gallops, no murmurs Cardiovascular: S1, S2 Breasts: Normal, Rt breast nml w/o mass, Lt breast nml w/o mass, Nipples normal Abdomen: Normal bowel sounds, Soft, No tenderness, No hepatosplenomegaly, No masses Rectal Exam: not examined PELVIC: Nml ext genitalia Extremities: No clubbing, No cyanosis, No edema, Normal pulses, No tenderness/ swelling Skin: No rashes, No breakdown, No significant lesion Psych/Mental Status: Mental status NL, Mood NL Vitals Vitals Vital Signs Date Time Temp Pulse Resp B/P Pulse Ox O2 Delivery O2 Flow Rate FiO2 09/27/16 13:17 18 Room Air 09/27/16 11:01 98.5 77 133/72 93 98.5 Labs Labs Laboratory Tests Test 09/27/16 03:30 09/27/16 10:40 White Blood Count 10.1x10^3/uL (4.0-11.0) Red Blood Count 3.36x10^6/uL (3.50-5.40) Hemoglobin 10.7g/dL (12.0-15.5) Hematocrit 32.3% (36.0-47.0) Mean Corpuscular Volume 96fL (79-100) Mean Corpuscular Hemoglobin 32pg (25-35) Mean Corpuscular Hemoglobin Concent 33g/dL (31-37) Red Cell Distribution Width 13.5% (11.5-14.5) Platelet Count 308x10^3/uL (140-400) Neutrophils (%) (Auto) 79% (31-73) Lymphocytes (%) (Auto) 12% (24-48) Monocytes (%) (Auto) 8% (0-9) Eosinophils (%) (Auto) 1% (0-3) Basophils (%) (Auto) 1% (0-3) Neutrophils # (Auto) 8.0x10^3uL (1.8-7.7) Lymphocytes # (Auto) 1.2x10^3/uL (1.0-4.8) Monocytes # (Auto) 0.8x10^3/uL (0.0-1.1) Eosinophils # (Auto) 0.1x10^3/uL (0.0-0.7) Basophils # (Auto) 0.0x10^3/uL (0.0-0.2) Prothrombin Time 13.0SEC (11.7-14.0) Prothromb Time International Ratio 1.0 (0.8-1.1) Sodium Level 141mmol/L (136-145) Potassium Level 3.5mmol/L (3.5-5.1) Chloride Level 104mmol/L (98-107) Carbon Dioxide Level 30mmol/L (21-32) Anion Gap 7 (6-14) Blood Urea Nitrogen 12mg/dL (7-20) Creatinine 0.8mg/dL (0.6-1.0) Estimated GFR (Cockcroft-Gault) 72.2 Glucose Level 108mg/dL (70-99) Calcium Level 9.2mg/dL (8.5-10.1) Magnesium Level 1.5mg/dL (1.8-2.4) Total Bilirubin 0.4mg/dL (0.2-1.0) Direct Bilirubin 0.1mg/dL (0.0-0.2) Aspartate Amino Transf (AST/SGOT) 38U/L (15-37) Alanine Aminotransferase (ALT/SGPT) 32U/L (14-59) Alkaline Phosphatase 75U/L (46-116) Creatine Kinase 125U/L (26-192) Creatine Kinase MB (Mass) 1.1ng/mL (0.0-3.6) Creatine Kinase MB Relative Index 0.9% (0-4) Troponin I Quantitative < 0.017ng/mL (0.000-0.055) < 0.017ng/mL (0.000-0.055) UW-Vdo-A-Type Natriuretic Peptide 892pg/mL (0-124) Total Protein 6.9g/dL (6.4-8.2) Albumin 3.5g/dL (3.4-5.0) Laboratory Tests Test 09/27/16 03:30 09/27/16 10:40 White Blood Count 10.1x10^3/uL (4.0-11.0) Red Blood Count 3.36x10^6/uL (3.50-5.40) Hemoglobin 10.7g/dL (12.0-15.5) Hematocrit 32.3% (36.0-47.0) Mean Corpuscular Volume 96fL (79-100) Mean Corpuscular Hemoglobin 32pg (25-35) Mean Corpuscular Hemoglobin Concent 33g/dL (31-37) Red Cell Distribution Width 13.5% (11.5-14.5) Platelet Count 308x10^3/uL (140-400) Neutrophils (%) (Auto) 79% (31-73) Lymphocytes (%) (Auto) 12% (24-48) Monocytes (%) (Auto) 8% (0-9) Eosinophils (%) (Auto) 1% (0-3) Basophils (%) (Auto) 1% (0-3) Neutrophils # (Auto) 8.0x10^3uL (1.8-7.7) Lymphocytes # (Auto) 1.2x10^3/uL (1.0-4.8) Monocytes # (Auto) 0.8x10^3/uL (0.0-1.1) Eosinophils # (Auto) 0.1x10^3/uL (0.0-0.7) Basophils # (Auto) 0.0x10^3/uL (0.0-0.2) Prothrombin Time 13.0SEC (11.7-14.0) Prothromb Time International Ratio 1.0 (0.8-1.1) Sodium Level 141mmol/L (136-145) Potassium Level 3.5mmol/L (3.5-5.1) Chloride Level 104mmol/L (98-107) Carbon Dioxide Level 30mmol/L (21-32) Anion Gap 7 (6-14) Blood Urea Nitrogen 12mg/dL (7-20) Creatinine 0.8mg/dL (0.6-1.0) Estimated GFR (Cockcroft-Gault) 72.2 Glucose Level 108mg/dL (70-99) Calcium Level 9.2mg/dL (8.5-10.1) Magnesium Level 1.5mg/dL (1.8-2.4) Total Bilirubin 0.4mg/dL (0.2-1.0) Direct Bilirubin 0.1mg/dL (0.0-0.2) Aspartate Amino Transf (AST/SGOT) 38U/L (15-37) Alanine Aminotransferase (ALT/SGPT) 32U/L (14-59) Alkaline Phosphatase 75U/L (46-116) Creatine Kinase 125U/L (26-192) Creatine Kinase MB (Mass) 1.1ng/mL (0.0-3.6) Creatine Kinase MB Relative Index 0.9% (0-4) Troponin I Quantitative < 0.017ng/mL (0.000-0.055) < 0.017ng/mL (0.000-0.055) HD-Urc-N-Type Natriuretic Peptide 892pg/mL (0-124) Total Protein 6.9g/dL (6.4-8.2) Albumin 3.5g/dL (3.4-5.0) VTE Prophylaxis Ordered VTE Prophylaxis Devices: Yes VTE Pharmacological Prophylaxi: Yes Assessment/Plan Assessment/Plan 1. CHF, Congestive heart failure most probably acute on chronic diastolic 2. REcent bladder prolapse sx 3. HTN, controlled ffup: Await echo CAn give some K luis (k3.5 ) s/p lasix Ff up Dr. Larson as scheduled as OP MIraklax ok, per request Dc luis if echo ok Dw RN PATTY GARCÍA MD Sep 27, 2016 14:54
[2016-09-27 15:00] VITALS: BP 138/80
--- NOTE | 2016-09-27 16:02 | CARD ---
APPROVED REPORT EXAM: Two-dimensional and M-mode echocardiogram with Doppler and color Doppler. Other Information Quality : Average Rhythm : NSR INDICATION Congestive Heart Failure 2D DIMENSIONS RVDd2.2 (2.9-3.5cm)Left Atrium(2D)3.1 (1.6-4.0cm) IVSd1.0 (0.7-1.1cm)Aortic Root(2D)2.9 (2.0-3.7cm) LVDd4.0 (3.9-5.9cm)LVOT Diameter2.2 (1.8-2.4cm) PWd1.0 (0.7-1.1cm)LVDs2.4 (2.5-4.0cm) FS (%) 30.0 %SV50.5 ml LVEF(%)61.2 (>50%) Aortic Valve AoV Peak Rohan.153.2cm/sAoV VTI33.0cm AO Peak GR.9.4mmHgLVOT VTI 26.09cm AO Mean GR.5mmHgAVA (VTI)3.05cm2 Mitral Valve MV E Mzporavw933.2cm/sMV E Peak Gr.5mmHg MV DECEL ZHRL727gmMM A Hknhoylj691.9cm/s MV E Mean Gr.3mmHgMV AFL19mz E/A Ratio1.1MV A Pkceyehv782fj MVA (PHT)4.40cm2 TDI Lateral E' P. V11.05cm/sMedial E' P. V10.46cm/s E/Lateral E'9.8E/Medial E'10.3 Tricuspid Valve TR P. Lzonbnua729ka/sRAP [id number] TR Peak Gr.01kwFhRQWG67diDe LEFT VENTRICLE The left ventricle is normal size. There is normal left ventricular wall thickness. Left ventricle sy stolic function is normal. The Ejection Fraction is 60-65%. There is normal LV segmental wall motion. The left ventricular diastolic function and filling is normal for age. RIGHT VENTRICLE The right ventricle is normal size. The right ventricular systolic function is normal. ATRIA The left atrium size is normal. The right atrium size is normal. The interatrial septum is intact wit h no evidence for an atrial septal defect or patent foramen ovale as noted on 2-D or Doppler imaging. AORTIC VALVE The aortic valve is normal in structure and function. The aortic valve is trileaflet. Doppler and Col or Flow revealed no significant aortic regurgitation. There is no significant aortic valvular stenosi s. MITRAL VALVE The mitral valve is normal in structure and function. There is no mitral valve stenosis. Doppler and Color Flow revealed trace to mild mitral regurgitation. TRICUSPID VALVE The tricuspid valve is normal in structure and function. Doppler and Color Flow revealed mild tricusp id regurgitation. The PA pressure was estimated at 31 mmHg. There is no tricuspid valve stenosis. PULMONIC VALVE The pulmonic valve is not well visualized. Doppler and Color Flow revealed no pulmonic valvular regur gitation. There is no pulmonic valvular stenosis. GREAT VESSELS The aortic root is normal in size. The IVC is normal in size and collapses >50% with inspiration. PERICARDIAL EFFUSION There is no evidence of significant pericardial effusion. Critical Notification Critical Value: No <Conclusion> Left ventricle systolic function is normal. The Ejection Fraction is 60-65%. There is normal LV segmental wall motion. Trace to mild mitral regurgitation. Mild tricuspid regurgitation. The PA pressure was estimated at 31 mmHg. There is no evidence of significant pericardial effusion.
[2016-09-27] MEDS: POLYETHYLENE GLYCOL 3350 17 GM PACKET. PO SCH (16:46)
[2016-09-27 19:00] VITALS: BP 116/69
[2016-09-27 23:00] VITALS: BP 106/60
[2016-09-28] MEDS: OXYCODONE/APAP 5/325 TABLET. PO PRN ×3 (02:37→14:32)
[2016-09-28 03:03] VITALS: BP 95/57
[2016-09-28 07:03] VITALS: BP 113/77
[2016-09-28] MEDS ORDERED: POTASSIUM CHLORIDE 20 MEQ TABLET.ER. PO ONE (08:00)
[2016-09-28] MEDS: HYDROCHLOROTHIAZIDE 12.5 MG CAPSULE. PO SCH (08:33)
[2016-09-28] MEDS: LOSARTAN POTASSIUM 50 MG TABLET. PO SCH (08:34)
[2016-09-28] MEDS: POLYETHYLENE GLYCOL 3350 17 GM PACKET. PO SCH (08:35)
[2016-09-28] MEDS: SPIRONOLACTONE 25 MG TABLET PO SCH (08:35)
[2016-09-28] MEDS: DILTIAZEM HCL 180 MG CAP.ER.24H PO SCH (08:38)
[2016-09-28] MEDS: DOCUSATE SODIUM 100 MG CAPSULE PO SCH (08:40)
[2016-09-28] MEDS ORDERED: MAGNESIUM SULFATE 2GM 50 ML IV ONE (09:30)
[2016-09-28 10:12] VITALS: BP 99/57
--- NOTE | 2016-09-28 11:20 | PDOC3 ---
Discharge Summary Visit Information Date of Admission: Sep 27, 2016 Date of Discharge: Sep 28, 2016 Admitting Diagnosis Comment: 1. CHF, Congestive heart failure most probably acute on chronic diastolic 2. REcent bladder prolapse sx 3. HTN, controlled Final Diagnosis Problems Medical Problems: (1) Chest pain Status: Acute (2) CHF (congestive heart failure) Status: Acute (3) Shortness of breath Status: Acute Brief Hospital Course Allergies Allergies Coded Allergies Type Severity Reaction Last Updated Verified No Known Drug Allergies 09/22/16 No Vital Signs Vital Signs Date Time Temp Pulse Resp B/P Pulse Ox O2 Delivery O2 Flow Rate FiO2 09/28/16 10:12 97.5 69 18 99/57 98 Room Air 97.5 Lab Results Laboratory Tests Test 09/27/16 03:30 09/27/16 10:40 09/27/16 17:15 White Blood Count 10.1x10^3/uL (4.0-11.0) Red Blood Count 3.36x10^6/uL (3.50-5.40) Hemoglobin 10.7g/dL (12.0-15.5) Hematocrit 32.3% (36.0-47.0) Mean Corpuscular Volume 96fL (79-100) Mean Corpuscular Hemoglobin 32pg (25-35) Mean Corpuscular Hemoglobin Concent 33g/dL (31-37) Red Cell Distribution Width 13.5% (11.5-14.5) Platelet Count 308x10^3/uL (140-400) Neutrophils (%) (Auto) 79% (31-73) Lymphocytes (%) (Auto) 12% (24-48) Monocytes (%) (Auto) 8% (0-9) Eosinophils (%) (Auto) 1% (0-3) Basophils (%) (Auto) 1% (0-3) Neutrophils # (Auto) 8.0x10^3uL (1.8-7.7) Lymphocytes # (Auto) 1.2x10^3/uL (1.0-4.8) Monocytes # (Auto) 0.8x10^3/uL (0.0-1.1) Eosinophils # (Auto) 0.1x10^3/uL (0.0-0.7) Basophils # (Auto) 0.0x10^3/uL (0.0-0.2) Prothrombin Time 13.0SEC (11.7-14.0) Prothromb Time International Ratio 1.0 (0.8-1.1) Sodium Level 141mmol/L (136-145) Potassium Level 3.5mmol/L (3.5-5.1) Chloride Level 104mmol/L (98-107) Carbon Dioxide Level 30mmol/L (21-32) Anion Gap 7 (6-14) Blood Urea Nitrogen 12mg/dL (7-20) Creatinine 0.8mg/dL (0.6-1.0) Estimated GFR (Cockcroft-Gault) 72.2 Glucose Level 108mg/dL (70-99) Calcium Level 9.2mg/dL (8.5-10.1) Magnesium Level 1.5mg/dL (1.8-2.4) Total Bilirubin 0.4mg/dL (0.2-1.0) Direct Bilirubin 0.1mg/dL (0.0-0.2) Aspartate Amino Transf (AST/SGOT) 38U/L (15-37) Alanine Aminotransferase (ALT/SGPT) 32U/L (14-59) Alkaline Phosphatase 75U/L (46-116) Creatine Kinase 125U/L (26-192) Creatine Kinase MB (Mass) 1.1ng/mL (0.0-3.6) Creatine Kinase MB Relative Index 0.9% (0-4) Troponin I Quantitative < 0.017ng/mL (0.000-0.055) < 0.017ng/mL (0.000-0.055) < 0.017ng/mL (0.000-0.055) BG-Isf-K-Type Natriuretic Peptide 892pg/mL (0-124) Total Protein 6.9g/dL (6.4-8.2) Albumin 3.5g/dL (3.4-5.0) Laboratory Tests Test 09/27/16 17:15 Troponin I Quantitative < 0.017ng/mL (0.000-0.055) Brief Hospital Course Ms. Still is a 66 old [sex] who presented with [ ]66 y.o AA female who ferels close to back to baseline now came thru ER this am either bec of CP or SOA and was found to have CHF on CXR with elevated BNP 800s. Got lasix diuresis and feels better. CLaims on lasix 20 at [facility] which she takes prn but that is not on file. She has voided alot. She actually just had bladder sx by dr. Larson 09/23 and still has been needing to strain to void. 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 Condition at Discharge: Improved, Stable Follow Up: Weeks (PCP/cards) Disposition/Orders: D/C to Home Scheduled ([cardia]) 180 MG PO DAILY (Reported) ([estradiol injection]) Q4WK (Reported) Docusate Sodium (Colace) 1 CAP PO BID Losartan/Hydrochlorothiazide (Losartan-Hctz 100-12.5 Mg Tab) 1 EACH PO DAILY ( Reported) Oxycodone/Apap 5-325 (Percocet 5-325 Mg Tablet) 1-2 TAB PO Q4-6HRS Spironolactone (Spironolactone) 1 TAB PO DAILY (Reported) Scheduled PRN Hydrocodone Bit/Acetaminophen (Hydrocodone-Apap 5-325 ) 1 TAB PO PRN Q6HRS PRN PRN PAIN (Reported) Hydrocodone/Chlorphen Polis (Hydrocodone-Chlorpheniram Susp) 5 ML PO PRN Q12HR PRN PRN COUGH (Reported) Ibuprofen (Ibuprofen) 800 MG PO PRN Q6HRS PRN PRN INFLAMMATION (Reported) Ibuprofen (Ibuprofen) 800 MG PO PRN Q6HRS PRN PRN INFLAMMATION PATTY GARCÍA MD Sep 28, 2016 11:20
[2016-09-28] MEDS ORDERED: MAGNESIUM OXIDE 400 MG TABLET PO SCH (12:00)
--- NOTE | 2016-09-28 12:34 | PDOC ---
CARDIO Progress Notes Date and Time Date of Service 09/28/16 Time of Evaluation 1250 Subjective Subjective: No Chest Pain, No shortness of breath, No Palpitations, No Dizziness Vitals Vitals Vital Signs Date Time Temp Pulse Resp B/P Pulse Ox O2 Delivery O2 Flow Rate FiO2 09/28/16 10:12 97.5 69 18 99/57 98 Room Air 97.5 Weight Weight [ ] Input and Output Intake and Output Intake and Output 09/28/16 07:00 Output Total 2600 ml Balance -2600 ml Output Urine Total 2600 ml # Voids 9 Laboratory Labs Laboratory Tests Test 09/27/16 17:15 Troponin I Quantitative < 0.017ng/mL (0.000-0.055) Physical Exam HEENT: Neck Supple W Full Motion Chest: Symmetric LUNGS: Clear to Auscultation Heart: S1S2, RRR Abdomen: Soft N/T Extremities: 2+ Dorsalis Pedis, No Edema Neurology: alert, oriented, follow commands Assessment Assessment 1. Acute on chronic diastolic heart failure improved with IV diuresis. Echo notable for normal LV wall motion; LVEF 60-65%. Appears clinically compensated. Chest CT neg for PE. Consider ischemic workup, in the form of stress test, as an outpatient. 2. Hypertension controlled 3. Hypomagnesemia replaced. Monitor SEJAL Matt APRN Sep 28, 2016 12:34
[2016-09-28 14:05] VITALS: BP 103/65
== END 2016-09-28 15:10 | disposition home or self-care (01) | DRG 293 ==
LOC: ER 03:15 → 2 NORTH 05:35
PROVIDERS: ADMIT Internal Medicine; ATTEND Internal Medicine
DX: I11.0 Hypertensive heart disease with heart failure (principal); I50.33 Acute on chronic diastolic (congestive) heart failure; E83.42 Hypomagnesemia; Z96.659 Presence of unspecified artificial knee joint; Z90.710 Acquired absence of both cervix and uterus; Z98.890 Other specified postprocedural states
CPT/HCPCS: 36415; 71010; 71275; 80048; 80076; 82553; 83735; 83880; 84484; 85027; 85610; 93005; 93306; 96361; 96374; 96375; J1940; J2405; J7030; J7060; S0028; 99285-25

== ENCOUNTER → 2018-08-02 | Outpatient (CLI) | payer BC ==
[~2018-08-02] MED LIST changes: +DOCU-109 PO; -DOCU-27 PO; -HYDR-2666 PO; +HYDR-2761 PO; -LOSA1TAB18 PO; +LOSA1TAB25 PO; -OXYC-323 PO; +OXYC1TAB15 PO; -SPIR50TA2 PO; +SPIR50TA4 PO
--- NOTE | 2018-08-02 15:21 | KCIC ---
3 view lumbar spine 08/02/2018 Clinical indications: Chronic low back pain. COMPARISON: None. FINDINGS: There are 5 nonrib-bearing lumbar-type vertebral bodies with the 1st considered L1. Vertebral body heights are maintained. Grade 1 retrolisthesis L1 on L2 and L2 on L3 and grade one antral disease is L4 on L5 and L5 on S1. Multilevel lumbar spondylosis to a mild degree at T12-L1 through L4-L5, and a moderate degree L5-S1 with disc space, endplate sclerosis and marginal osteophyte formation. Multilevel lumbar facet hypertrophy. IMPRESSION: 1. Multilevel lumbar spondylosis, greatest at L5-S1. 2. Multilevel grade 1 listhesis. Electronically signed by: Chito Puente MD (08/02/2018 3:17 PM) [id number]
== END | disposition home or self-care (01) ==
LOC: KCIC 09:28
PROVIDERS: ATTEND Nurse Practitioner
DX: M47.897 Other spondylosis, lumbosacral region (principal); M43.17 Spondylolisthesis, lumbosacral region; M25.78 Osteophyte, vertebrae; M79.604 Pain in right leg
CPT/HCPCS: 72100

== ENCOUNTER → 2019-05-16 | Outpatient (CLI) | payer BC ==
--- NOTE | 2019-05-17 14:59 | RAD ---
PA and lateral chest x-ray compared to portable chest x-ray dated September 27, 2016 for dyspnea. FINDINGS: The lungs are clear. The cardiomediastinum is grossly unremarkable save for borderline cardiomegaly. No significant soft tissue or osseous abnormality are seen. IMPRESSION: 1. No acute cardiopulmonary abnormality. Electronically signed by: Dannie Diaz MD (05/17/2019 2:56 PM) [facility]
== END | disposition home or self-care (01) ==
LOC: LAB 16:12
PROVIDERS: ATTEND Internal Medicine Pulmonary Disease
DX: I51.7 Cardiomegaly (principal)
CPT/HCPCS: 36415; 71046; 83880